=== PATIENT | female | born 1970 | race Caucasian/White ===

== ENCOUNTER 2022-09-24 05:43 | Observation (INO) ==
--- NOTE | 2022-09-01 10:29 | PAT Medication Instructions ---
Medication Instructions Date of Service September 01, 2022 Home Medications magnesium oxide 400 mg PO QAM Lactobacillus 25 billion cell-Bifido 25 billion [id number] capsule (Women's Probiotic) 1 cap PO QAM ascorbic acid (vitamin C) 1,000 mg tablet (Vitamin C) 4,000 mg PO QAM cholecalciferol (vitamin D3) 125 mcg (5,000 unit) tablet (Vitamin D3) 125 mcg PO QAM docosahexaenoic acid (dha)-epa capsule 1 cap PO QAM garlic 1,000 mg capsule 1,000 mg PO QAM niacin 250 mg tablet 250 mg PO QAM turmeric root extract 500 mg capsule 500 mg PO QAM zinc 50 mg tablet 50 mg PO QAM STOP taking 2 weeks before surgery (or as soon as possible if surgery is within 2 weeks) docosahexaenoic acid (dha)-epa capsule 1 cap PO QAM garlic 1,000 mg capsule 1,000 mg PO QAM turmeric root extract 500 mg capsule 500 mg PO QAM STOP taking 48 hours before surgery niacin 250 mg tablet 250 mg PO QAM DO NOT take the morning of surgery magnesium oxide 400 mg PO QAM Lactobacillus 25 billion cell-Bifido 25 billion [id number] capsule (Women's Probiotic) 1 cap PO QAM ascorbic acid (vitamin C) 1,000 mg tablet (Vitamin C) 4,000 mg PO QAM cholecalciferol (vitamin D3) 125 mcg (5,000 unit) tablet (Vitamin D3) 125 mcg PO QAM zinc 50 mg tablet 50 mg PO QAM Other Notes NOTHING TO EAT OR DRINK AFTER MIDNIGHT. If you have any questions please call us at [phone] or [phone] or [phone] or [phone]
--- NOTE | 2022-09-10 11:11 | Anesthesiology Consultation ---
Date of Service September 10, 2022 Assessment & Plan (1) Encounter for pre-operative examination: - Check test AM DOS - COVID screening: Per assessment on 09/10: No known COVID-19 positive contacts or current COVID-19 related symptoms. Travel screen- returned from [place] 08/31. At surgeon discretion if preop Covid testing being done. Chart Review Chart Review: Acceptable Risk for Surgery and Patient seen in Pre Admission Testing Teaching & Discussion Pre-Anesthesia Teaching/Discussion Notes: Instructed NPO after midnight before surgery,except medications with 15 cc of water. Medication instructions provided according to the PAT guidelines. History Surgery Operation Date: 09/24/22 10:05 Proposed Procedures p C5-C7 Anterior Cervical Discectomy and Fusion, Spinal Cord Monitoring - oRb Lake DO Height/Weight Height: 5 ft 9 in Weight: 87.7 kg Allergies Allergy/AdvReac Type Severity Reaction Status Date / Time No Known Drug Allergies Allergy Unknown Verified 09/01/22 08:01 Medications Home Medications Medication Instructions Recorded Confirmed Last Taken magnesium oxide 400 mg PO QAM 03/02/21 09/01/22 03/07/21 Lactobacillus 25 billion 1 cap PO QAM 03/23/21 09/01/22 Unknown cell-Bifido 25 billion [id number] capsule (Women's Probiotic) ascorbic acid (vitamin C) 1,000 mg 4,000 mg PO QAM 09/01/22 09/01/22 Unknown tablet (Vitamin C) cholecalciferol (vitamin D3) 125 125 mcg PO QAM 09/01/22 09/01/22 Unknown mcg (5,000 unit) tablet (Vitamin D3) docosahexaenoic acid (dha)-epa 1 cap PO QAM 09/01/22 09/01/22 Unknown capsule garlic 1,000 mg capsule 1,000 mg PO QAM 09/01/22 09/01/22 Unknown niacin 250 mg tablet 250 mg PO QAM 09/01/22 09/01/22 Unknown turmeric root extract 500 mg 500 mg PO QAM 09/01/22 09/01/22 Unknown capsule zinc 50 mg tablet 50 mg PO QAM 09/01/22 09/01/22 Unknown Past Medical History Medical History Costochondritis Hx 2020, s/p unremarkable cardiac [facility] [place] [facility]) Follows with health care / medical job titles PRN History of COVID-19 11/2021- severe fever, headache, congestion History of hyperthyroidism Per patient, remotely on oral medication for hyperthyroidism approximately 2004. She states she developed adverse reaction to the medications which were then discontinued. States thyroid levels have been under annual surveillance and euthyroid since discontinuing meds. No recent issues. Euthyoid on preop labs 09/10/22 Hx of migraines Hyperlipidemia IBS (irritable bowel syndrome) Lower back pain Ulcerative colitis No current issues Exercise / Class Metabolic Activity II 4-5 Yardwork/Stairs/Walk up hill (one FS (no CP, no SOB)) Past Family History Family History Father Parkinson's disease, Lewy body Mother Bladder cancer Breast cancer Brother Hypertension Other No family history of adverse response to anesthesia Past Surgical History Surgical History History of appendectomy History of colonoscopy History of elbow surgery right nerve transposition History of endometrial ablation History of esophagogastroduodenoscopy (EGD) History of foot surgery removal of tissue History of placement of ear tubes History of wisdom tooth extraction Nausea and vomiting after administration of anesthetic agent Past Anesthesia History No Hx of Anesthesia Complications (except PONV) and No Family Hx of Anesthesia Complications History of PONV History of PONV and Hx of Motion Sickness (Mild (improved)) STOP BANG Total 0 Social History Smoking Status: Never smoker Do You Dip or Chew Tobacco: No Hx Alcohol Use: Yes alcohol intake frequency: a few times a month Hx Substance Use: No substance use type: does not use Review of Systems Patient denies chest pain, shortness of breath, dyspnea on exertion, fever, chills, cough, wheezing, palpitations. Physical Exam Vital Signs VITALS BP 123/77 P 59 TEMP 97.9 SP02 99%RA RESP 16 PHYSICAL Decreased cervical extension range of motion. Full TMJ range of motion. TMD 3 finger breaths Mallampati Score 1 Dentition: intact Lungs: clear throughout to auscultation Cardiac: regular rate and rhythm, no murmurs noted Spine: normal Carotid arteries: negative bruit Extremities: no LE edema Lab Results Anesthesia Preop Results Results Anesthesia Widget: WBC 6.10 K/ul (4.8-10.8) 09/10/22 Hgb 12.6 g/dl (12.0-16.0) 09/10/22 Hct 37.7 % (37.0-47.0) 09/10/22 Plt 346 K/uL (130-400) 09/10/22 Na 139 mmol/L (136-145) 09/10/22 K 4.0 mmol/L (3.5-5.1) 09/10/22 Cl 102 mmol/L (98-107) 09/10/22 CO2 31 mmol/L (21-32) 09/10/22 BUN 13 mg/dl (6-23) 09/10/22 Creat 0.63 mg/dl (0.6-1.2) 09/10/22 Glucose Level 91 mg/dl (70-99(Fasting)) 09/10/22 PT 10.5 Seconds (9.0-12.0) 09/10/22 PTT 25.9 Seconds (21.0-31.0) 09/10/22 INR 1.0 (0.9-1.1) 09/10/22 TSH 1.644 uIu/ml (0.300-4.500) 09/10/22 Free T4 0.91 ng/dl (0.61-1.60) 09/10/22 Urine Color Yellow 09/10/22 Urine Appearance Clear (Clear) 09/10/22 Urine pH 6.5 (4.5-7.5) 09/10/22 Urine Specific Burns 1.004 (1.000-1.030) 09/10/22 Urine Protein Negative (Negative) 09/10/22 Urine Glucose (UA) Negative (Negative) 09/10/22 Urine Ketones Negative (Negative) 09/10/22 Urine Blood Negative (Negative) 09/10/22 Urine Nitrite Negative (Negative) 09/10/22 Urine Bilirubin Negative (Negative) 09/10/22 Urine Urobilinogen Negative (Negative) 09/10/22 Urine Leukocyte Esterase Trace (Negative) H 09/10/22 Urine WBC (Auto) 0 /hpf (0-5) 09/10/22 Urine RBC (Auto) 0-4 /hpf (0-4) 09/10/22 Urine Hyaline Casts (Auto) 0 /lpf (0-5) 09/10/22 Urine Epithelial Cells (Auto) 0-5 /lpf (0-5) 09/10/22 Urine Bacteria (Auto) Negative (Negative) 09/10/22 Blood Type A Positive 09/10/22 Antibody Screen NEGATIVE 09/10/22 Testing Electrocardiogram Date: 09/10/22 SB at 59bpm. iRBBB. "Otherwise normal ECG" Echocardiogram Date: 10/09/20 EF 60-65%. No significant valvular disease. Stress Test Date: 11/12/20 EKG shows no evidence of ST depression or reversible ischemia 102% MPHR. 10.10 METS. "Normal exercise stress test " COVID-19 Risk Screen Screening Information COVID-19 Screen Date: 09/10/22 Exposure 21 Days Family/Household +COVID Last 21 Days: No Exposure 10 Days Any COVID Exposure Last 10 Days: No Symptoms Last 10 Days Experienced COVID Sx Last 10 Days: No + COVID 0-90 Days COVID + in Last 0-90 Days: No
[2022-09-24] MEDS ORDERED: CeleBREX 200 MG CAP PO SCH (06:00)
[2022-09-24] MEDS ORDERED: GABAPENTIN 900 MG DOSE PO SCH (06:00)
[2022-09-24] MEDS ORDERED: ACETAMINOPHEN 500 MG TAB PO SCH (06:00)
[2022-09-24] MEDS ORDERED: LR 15ML/HR IV SCH (06:00)
[2022-09-24] MEDS ORDERED: ceFAZolin 2000MG 2,000 MG/15 ML SYR IV SCH (06:00)
[2022-09-24] MEDS ORDERED: ceFAZolin 330 MG/ML 1 GM VIAL ONE (07:04)
[2022-09-24] MEDS ORDERED: MIDAZOLAM HCL 1 MG/ML 2ML VIAL ONE (07:12)
[2022-09-24] MEDS ORDERED: fentaNYL citrate PF 100 MCG/2 ML VIAL ONE (07:12)
[2022-09-24] MEDS ORDERED: DEXAMETHASONE SOD INJ 4 MG/ML VIAL ONE (07:12)
[2022-09-24] MEDS ORDERED: diphenhydrAMINE 50 MG/ML VIAL ONE (07:13)
[2022-09-24] MEDS ORDERED: ONDANSETRON INJ 2 MG/ML 2 ML VIAL ONE (07:13)
[2022-09-24] MEDS ORDERED: ROCURONIUM BROMIDE 10 MG/ML 5 ML VIAL IV ONE (07:13)
[2022-09-24] MEDS ORDERED: LIDOCAINE 2% 2 ML VIAL/AMP(20MG/ML) INFIL ONE (07:13)
[2022-09-24] MEDS ORDERED: PROPOFOL IV EMULSION 10 MG/ML 20 ML VIAL IV ONE ×2 (07:13→08:37)
[2022-09-24] MEDS ORDERED: GLYCOPYRROLATE 0.2 MG/ML VIAL ONE (07:13)
[2022-09-24] MEDS ORDERED: SCOPOLAMINE 1 MG TDSY TD ONE (07:39)
[2022-09-24] MEDS ORDERED: ATROPINE SULFATE 0.1 MG/ML 10ML SYR IV PRN (07:44)
[2022-09-24] MEDS ORDERED: ePHEDrine sulfate 50 MG/ML AMP IV PRN (07:44)
[2022-09-24] MEDS ORDERED: ONDANSETRON INJ 2 MG/ML 2 ML VIAL IV PRN (07:44)
--- NOTE | 2022-09-24 07:51 | History & Physical Bridge Note ---
Date of Service September 24, 2022 History & Physical Bridge Note I have examined the patient, reviewed the History & Physical and in the interval since the performance of the History & Physical I have noted the following changes of clinical significance: no changes noted
--- NOTE | 2022-09-24 07:52 | History & Physical Report ---
Date of Service September 24, 2022 Assessment & Plan (1) Cervical stenosis of spinal canal: Plan: C5-C7 anterior cervical discectomy and fusion, placement of prosthetic spacer/allograft or allograft anterior plate and screw fixation History of Present Illness Chief Complaint: Neck and arm pain Primary Care Provider: Chelsey Valdes PA-C This is a 52-year-old female presents with chronic persistent neck and arm pain after failing since course of nonoperative care she is here for surgical intervention. Allergies Allergy/AdvReac Type Severity Reaction Status Date / Time No Known Drug Allergies Allergy Unknown Unknown Verified 09/24/22 06:27 Home Medications Medication Instructions Recorded Confirmed Type magnesium oxide 400 mg PO QAM 03/02/21 09/24/22 History Lactobacillus 25 billion 1 cap PO QAM 03/23/21 09/24/22 History cell-Bifido 25 billion [id number] capsule (Women's Probiotic) ascorbic acid (vitamin C) 1,000 mg 4,000 mg PO QAM 09/01/22 09/24/22 History tablet (Vitamin C) cholecalciferol (vitamin D3) 125 125 mcg PO QAM 09/01/22 09/24/22 History mcg (5,000 unit) tablet (Vitamin D3) docosahexaenoic acid (dha)-epa 1 cap PO QAM 09/01/22 09/24/22 History capsule garlic 1,000 mg capsule 1,000 mg PO QAM 09/01/22 09/24/22 History niacin 250 mg tablet 250 mg PO QAM 09/01/22 09/24/22 History turmeric root extract 500 mg 500 mg PO QAM 09/01/22 09/24/22 History capsule zinc 50 mg tablet 50 mg PO QAM 09/01/22 09/24/22 History Past Med/Surg History Medical History Costochondritis Hx 2020, s/p unremarkable cardiac work [facility] [place] [facility] Follows with inpatient care manager rn PRN History of COVID-19 11/2021- severe fever, headache, congestion History of hyperthyroidism Per patient, remotely on oral medication for hyperthyroidism approximately 2004. She states she developed adverse reaction to the medications which were then discontinued. States thyroid levels have been under annual surveillance and euthyroid since discontinuing meds. No recent issues. Euthyoid on preop labs 09/10/22 Hx of migraines Hyperlipidemia IBS (irritable bowel syndrome) Lower back pain Ulcerative colitis No current issues Surgical History History of appendectomy History of colonoscopy History of elbow surgery right nerve transposition History of endometrial ablation History of esophagogastroduodenoscopy (EGD) History of foot surgery removal of tissue History of placement of ear tubes History of wisdom tooth extraction Nausea and vomiting after administration of anesthetic agent Family History Father Parkinson's disease, Lewy body Mother Bladder cancer Breast cancer Brother Hypertension Other No family history of adverse response to anesthesia Social History Smoking Status: Never smoker Second Hand Exposure: No; Do You Dip or Chew Tobacco: No; Tobacco Cessation Education Requested by Patient: No Hx Alcohol Use: Yes Hx Substance Use: No Preferred Language: Hebrew Communication Ability: Effective Tax Expert Required: No Beliefs That Will Affect Care: None Current Living Situation: Spouse and Family Current Living Situation Comment: Lives with and 2 adult children Other Information That Helps Us Care for You: No Feels Safe at Home: Yes Safety Concerns: Feels Safe At This Time Assistive Devices: Glasses Physical Exam Physical Exam: Patient is alert and oriented Heart regular rhythm Lungs clear Results & Data Results & Data Vital Signs (Past 12 Hours) Vital Signs Temp Pulse Resp BP Pulse Ox O2 Del Method 09/24/22 06:30 36.5 C 65 20 159/99 H 100 Room Air
[2022-09-24] MEDS ORDERED: KETAMINE 50 MG/5 ML SYRINGE ONE (08:41)
[2022-09-24] MEDS ORDERED: FLOSEAL HEMOSTATIC MATRIX 10ML TOP ONE (08:53)
[2022-09-24] MEDS ORDERED: SUGAMMADEX SODIUM 200 MG/2 ML VIAL IV ONE ×2 (08:58→09:50)
[2022-09-24] MEDS ORDERED: ePHEDrine sulfate 50 MG/ML AMP ONE (09:04)
[2022-09-24] MEDS ORDERED: SODIUM CHLORIDE 0.9% PF INJ 10 ML VIAL ONE (09:04)
--- NOTE | 2022-09-24 09:37 | Operative Report ---
Post Operative Report Pre & Post Diagnosis Operation Date: 09/24/22 07:45 Pre-Op Diagnosis: Cervical spinal stenosis with radiculopathy Post-Op Diagnosis: Same I identified the patient and participated in the time-out.: Yes Procedure Operation Date: 09/24/22 07:45 Actual Procedures #1 anterior cervical discectomy and bilateral foraminotomies C5-C6 C6-C7. #2 anterior cervical arthrodesis C5-C6 C6-C7. #3 placement of Spira 7 mm cage filled with I factor at C5-C6 C6-C7. #4 application of K2 M plate and screws from C5-C7. Surgeon Rob Lake, [address] Court Justice None Estimated Blood Loss 10 Findings Consistent with Post-Op Diagnosis Specimens None Indications This is a 52-year-old female presents above-mentioned diagnosis after failed extensive course of nonoperative care is here for surgical invention. Description of Procedure Patient was met with identified informed consent obtained. Patient was then taken to the operative suite underwent ablation placed in spine position jacks table head Campbell lateral. All bony prominences well-padded eyes inspected to ensure no external pressure placed upon them. This point the anterior cervical spine was prepped and draped in a sterile fashion. With the assistance of fluoroscopy defy the C6 vertebral body and a transverse incision was placed along the right anterior aspect of the cervical spine overlying his region. Blunt dissection with the assistance of bipolar cautery was performed down to and exposing the anterior cervical spine from C5-C7. A self-retaining retractors placed. Then performed a complete discectomy of C5-C6 out to the uncovertebral's bilaterally. [place] distracting pins were utilized to assist in visualization. Removed all posterior annular fibers longitudinal ligament bilateral foraminotomies performed. Endplates burred to subcortical bleeding bone and a 7 mm Spira cage with I factor tapped in position. I then proceeded to C6-C7 and again a complete discectomy performed out to the uncovertebral's bilaterally. [place] distracting pins again utilized. Removed all posterior annular fibers longitudinal ligament bilateral foraminotomies performed and again a 7 mm Spira cage with I factor tapped in position. Distracting apparatus was removed and a K2 M plate and screws applied with the assistance of fluoroscopy. The incision was then copiously irrigated explored to ensure no damage to surrounding structures or remaining bleeding. 10 round SHAWN drain inserted. The incision was then closed with 2 Vicryl fascia and 4 Monocryl for final skin closure. Steri-Strip sterile dressing placed. Patient awakened taken PACU stable condition. Please note spinal cord monitoring visualized at the procedure no changes noted. I attest to the content of the Intraoperative Record and any orders documented therein. Any exceptions are noted below.
[2022-09-24] MEDS: HYDROmorphone INJ 2 MG/ML SYR/VIAL IV PRN ×4 (10:22→10:37)
--- NOTE | 2022-09-24 10:31 | Fluoroscopy Report ---
FL cervical 2-3V CLINICAL HISTORY: C5-C7 ANTERIOR DISCECTOMY FUSION TECHNIQUE: 3 views were obtained with the C-arm in the OR with the above procedure. Total fluoroscopy time was 18 seconds. Radiation dose was 4.01 mGy. Comparison: None available at the time of this dictation. FINDINGS/IMPRESSION: Intraoperative images were obtained of C5-C7 ACDF Please correlate with intraoperative fluoroscopy and operative report. ACT 112: Negative or not required by law. Electronically signed by: Linus Loving M.D. 09/24/2022 10:29 AM
--- NOTE | 2022-09-24 11:06 | Anesthesiology Progress Note ---
Date of Service September 24, 2022 Anesthesia Post Procedure Vital Signs Vital Signs: Temp Pulse Pulse Resp BP Pulse Ox O2 Del Method 09/24/22 11:00 52 L 13 136/77 100 Nasal Cannula 09/24/22 10:50 67 15 121/80 100 Nasal Cannula 09/24/22 10:40 52 L 18 143/79 H 100 Nasal Cannula 09/24/22 10:30 60 13 133/79 100 Nasal Cannula 09/24/22 10:20 86 13 151/79 H 100 Oxymask 09/24/22 10:10 99 H 12 153/96 H 100 Oxymask 09/24/22 10:01 36.5 C 103 H 12 136/85 100 Oxymask 09/24/22 06:30 36.5 C 65 20 159/99 H 100 Room Air O2 Flow Rate 09/24/22 11:00 2 09/24/22 10:50 2 09/24/22 10:40 2 09/24/22 10:30 2 09/24/22 10:20 6 09/24/22 10:10 11 09/24/22 10:01 11 09/24/22 06:30 Pain Intensity Neck: Pain Intensity: 5 Transfer of Care Handoff Completed per policy Notes Mental Status: alert / awake / arousable and participated in evaluation Nausea / Vomiting: adequately controlled Pain: adequately controlled Airway Patency, RR, SpO2: stable & adequate BP & HR: stable & adequate Hydration State: stable & adequate Anesthetic Complications: no major complications apparent and Pt Satisfied with anesthetic care
[2022-09-24] MEDS ORDERED: MAGNESIUM HYDROXIDE SUSP 30 ML UDC PO PRN (11:23)
[2022-09-24] MEDS ORDERED: DO NOT ADMINISTER FLU VACCINE PRN (11:23)
[2022-09-24] MEDS ORDERED: bisacodyL 10 MG SUPP PR PRN (11:23)
[2022-09-24] MEDS ORDERED: SOD PHOSPHATE/SOD BIPHOSPHATE ENEMA 132 ML BTL PR PRN (11:23)
[2022-09-24] MEDS ORDERED: diphenhydrAMINE Capsule 25 MG CAP PO PRN (11:23)
[2022-09-24] MEDS ORDERED: DO NOT ADMINISTER PNEUMOCOCCAL VACCINE PRN (11:23)
[2022-09-24] MEDS ORDERED: ONDANSETRON 4 MG OD TAB PO PRN (11:23)
[2022-09-24] MEDS ORDERED: LORazepam 2 MG/1 ML VIAL IV PRN (11:23)
[2022-09-24] MEDS ORDERED: METOCLOPRAMIDE HCL INJ 5 MG/ML 2 ML VIAL IV PRN (11:23)
[2022-09-24] MEDS ORDERED: dexAMETHasone 8 MG in SYRINGE 0 ML IV PRN (11:23)
[2022-09-24] MEDS ORDERED: HYDROmorphone INJ 0.5 MG/0.5 ML SYR IV PRN (11:23)
[2022-09-24] MEDS ORDERED: HYDROmorphone INJ 1 MG/ML SYRINGE IV PRN (11:23)
[2022-09-24] MEDS ORDERED: oxyCODONE HCL IR 5 MG TAB (IMMEDIATE RELEASE) PO PRN (11:23)
[2022-09-24] MEDS ORDERED: hydrOXYzine HCl 25 MG TAB PO PRN (11:23)
[2022-09-24] MEDS ORDERED: NALOXONE HCL 0.4 MG/1 ML VIAL/CARP IV PRN (11:23)
[2022-09-24] MEDS ORDERED: FAMOTIDINE 20 MG TAB PO PRN (11:23)
[2022-09-24] MEDS ORDERED: ALUMINUM/MAGNESIUM SUSP 30 ML UDC PO PRN (11:23)
[2022-09-24] MEDS ORDERED: PROMETHAZINE HCL 12.5 MG in SODIUM CHLORIDE 0.9% 50 ML IV PRN (11:23)
[2022-09-24] MEDS ORDERED: ACETAMINOPHEN 1,000 MG/100 ML VIAL IV PRN (11:23)
[2022-09-24] MEDS ORDERED: ACETAMINOPHEN 500 MG TAB PO PRN (11:23)
[2022-09-24] MEDS ORDERED: RACEPINEPHRINE 2.25% NEBU SOLN 0.5 ML VIAL INH PRN (11:23)
[2022-09-24] MEDS ORDERED: LORazepam 0.5 MG TAB PO PRN (11:23)
[2022-09-24] MEDS: LACTATED RINGER'S 1,000 ML IV SCH ×2 (11:35→17:50)
[2022-09-24] MEDS: ONDANSETRON INJ 2 MG/ML 2 ML VIAL IV PRN ×2 (14:28→20:20)
[2022-09-24] MEDS: ceFAZolin 2000MG 2,000 MG/15 ML SYR IV SCH (16:31)
[2022-09-24] MEDS ORDERED: DOCUSATE SODIUM/SENNA 50/8.6MG TAB PO SCH (21:00)
[2022-09-25] MEDS: ceFAZolin 2000MG 2,000 MG/15 ML SYR IV SCH (01:19)
[2022-09-25] MEDS: traMADol HCL 50 MG TABLET PO PRN ×2 (01:38→07:50)
[2022-09-25] MEDS: LACTATED RINGER'S 1,000 ML IV SCH (02:07)
[2022-09-25] MEDS ORDERED: POLYETHYLENE (MIRALAX) 17 GM PACK PO SCH (06:00)
[2022-09-25] MEDS ORDERED: NON-FORMULARY MEDICATION (Turmeric Root Extract 500 mg Capsule) PO SCH (09:00)
[2022-09-25] MEDS ORDERED: dexAMETHasone 6 MG in SYRINGE 0 ML IV SCH (09:00)
--- NOTE | 2022-09-25 09:22 | Discharge Summary ---
Date of Service September 25, 2022 Admission HPI Per Admitting Provider This is a 52-year-old female presents with chronic persistent neck and arm pain after failing since course of nonoperative care she is here for surgical intervention. Principal Diagnosis Cervical spinal stenosis with radiculopathy Discharge Data Allergies Allergy/AdvReac Type Severity Reaction Status Date / Time No Known Drug Allergies Allergy Unknown Unknown Verified 09/24/22 06:27 Procedures Performed Operation Date: 09/24/22 07:45 Actual Procedures p C5-C7 Anterior Cervical Discectomy and Fusion, Placement of Prosthetic Spacer, Allograft or Autograft, Anterior Plate and Screw Fixation Spinal Cord Monitoring(Not Applicable) - Rob Lake DO Ordered Studies 09/24/22 07:00 FL cervical 2-3V Routine Hospital Course (1) Cervical stenosis of spinal canal: Patient underwent anterior cervical discectomy and fusion tolerated as well as taken to orthopedic for possibly. Postop day 1 she was up and ambulating swallowing well no hoarseness. Excellent strength testing. SHAWN drain decreasing appropriately. Simply discharged home. Discharge orders instructions from the chart for further review. Total Time Total Time Spent Total Time Spent (In Minutes): 20 minutes Discharge Plan Discharge Items Patient Disposition: Home - Self-Care Reason For Visit: Spinal Stenosis, Cervical Region Discharge Diagnosis: cervical stenosis Activity: As commented below Non-emergency contact: Primary Care Provider Call non-emergency contact if: you have any medication questions Follow-up/Referrals: Chelsey Valdes PA-C [Primary Care Provider] - Diet: Regular Addtl Attending Provider Instructions: ACTIVITY RECOMMENDATIONS: SELF CARE INSTRUCTIONS AFTER CERVICAL FUSIONS 1. No smoking. Smoking drastically decreases the chance of a solid fusion. 2. No bending, lifting more than 5 pounds, or twisting (roll like a log when turning in bed). 3. You may shower 3 days after surgery. Thoroughly dry wound. Do not soak in the tub. 4. Cervical collar: Must be worn at all times including sleeping. You may remove the brace only to bath, eat and if you are sitting in a recliner. 5. Please walk as much as you can for exercise. Gradually increase the distance that you walk as your endurance increases. SPECIAL CARE INSTRUCTIONS: VERY IMPORTANT TO READ AND REVIEW A. Do not take any anti-inflammatory medications (i.e. Indocin, Advil, Aspirin, Naprosyn, Aleve, Motrin, etc.) as these may inhibit the chance of a solid fusion. Tylenol is okay to take. B. Your surgical incision has been closed with a cosmetic suture under the skin that will dissolve in about 6 weeks. In 14 days, you can use a pair of clean scissors and cut the suture that is left outside of the skin at the ends of your incision. C. Complications are uncommon, but please contact us if you have any signs or symptoms of: 1. wound infection (fever higher than 102.5 degrees F, redness, separation of wound, drainage, or increasing pain from the incision) 2. blood clots in legs (pain, swelling, redness and warmth in legs) 3. urinary tract infection (fever higher than 102.5 degrees, burning upon urination or increased frequency of urination) 4. nerve problems (inability to walk on your toes or heels, numbness, loss of bowel or bladder control) 5. any other symptoms that concern you. D. Please call the office at if you have any concerns or questions about your operation or recovery. MANAGING PAIN AFTER SPINAL SURGERY 1. Narcotic medication is intended for short-term use and will be provided for surgical pain. Surgical pain usually lasts for a period of 4-6 weeks. Narcotic medication includes Percocet, Vicodin, Darvocet, Tylenol #3 or Lortab. 2. Longer-term pain is more appropriately treated with non-narcotic medication such as Tylenol ES. 3. Muscle spasm is not appropriately treated with narcotics. Muscle relaxers such as Soma, Flexeril or Skelaxin can be used along with Tylenol ES. 4. Remember that we all live with some "aches and pains". This is not unusual or uncommon after an injury or as we get older. 5. We will provide appropriate medication within the normal guidelines of their prescribed use. We will also be very cautious and aware of potential abuse and extended duration of patients' medication needs. 6. Please allow 2-3 days to process refills. Prescriptions will not be mailed but must be picked up at the office. FOLLOW UP VISIT: Keep your scheduled follow-up appointment. Any questions, please call the office at . Pending Studies at Discharge: No Stand-Alone Forms: My [employer], Smoking Cessation Medications and DC Order Prescriptions: New tramadol 50 mg tablet 50 mg PO Q6H PRN (Reason: pain, moderate) Qty: 30 0RF oxycodone 5 mg tablet 5 mg PO Q6H PRN (Reason: pain) Qty: 30 0RF Continued Women's Probiotic 25B cell-25B cell-50 mg capsule 1 cap PO QAM docosahexaenoic acid-epa Capsule 1 cap PO QAM cholecalciferol (vitamin D3) [Vitamin D3] 125 mcg (5,000 unit) Tablet 125 mcg PO QAM zinc 50 mg Tablet 50 mg PO QAM Rx Instructions: administer on empty stomach, at least 1 hour before or after meal(s) ascorbic acid (vitamin C) [Vitamin C] 1,000 mg Tablet 4,000 mg PO QAM garlic 1,000 mg Capsule 1,000 mg PO QAM niacin 250 mg Tablet 250 mg PO QAM turmeric root extract 500 mg Capsule 500 mg PO QAM magnesium oxide 400 mg magnesium Capsule 400 mg PO QAM Discharge Orders: Discharge Order (Routine); Ordered 09/25/22 Ordered By: Rob Lake Admission Data Admit Date/Time: 09/24/22 09:40 Attending Provider: Rob Lake Admit Provider: Rob Lake Primary Care Provider: Chelsey Valdes
== END 2022-09-25 11:21 | disposition home or self-care (01) ==
LOC: ASU 05:43 → 3E 05:43